=== PATIENT | male | born 1975 | race Two or more races ===

== ENCOUNTER 2019-09-27 00:55 | Emergency (ER) | payer OTHER ==
[~2019-09-27] VITALS: Ht 180.3 cm; Wt 95.3 kg
[2019-09-27 04:32] LABS: Basophils # (auto) 0 uL; Basophils % (auto) 0.5 % (0.0-2.0); Eosinophils # (auto) 0.3 uL; Hematocrit 49.1 % (41.0-53.0); Hemoglobin 16.6 g/dL (13.5-17.5); Lymphocytes % (auto) 35.3 % (10.0-50.0); Mean Corpuscular Hemoglobin 31.6 pg (28.0-32.0); Mean Corpuscular Hgb Conc. 33.8 g/dL (32.0-36.0); Mean Corpuscular Volume 93.5 fL (80.0-100.0); Monocytes # (auto) 0.8 uL; Monocytes % (auto) 9.2 % (0.0-12.0); Neutrophils # (auto) 4.4 uL; Nucleated Red Blood Cells % 0.1 %; Platelet Count (auto) 192 10^3/uL (140-450); Red Blood Cells 5.25 10^6/uL (4.5-5.90); Red Cell Distribution Width 12.9 % (11.8-14.3); White Blood Cell 8.5 10^3/uL (4.4-10.8)
[2019-09-27 04:53] LABS: Alanine Aminotransferase 41 U/L (16-61); Albumin 4.5 g/dL (3.4-5.0); Anion Gap 8 (5-15); Aspartate Aminotransferase 22 U/L (15-37); BUN/Creatinine Ratio 11.2; Blood Urea Nitrogen 12 mg/dL (7-18); Calcium 9.4 mg/dL (8.5-10.1); Carbon Dioxide 27 mmol/L (21-32); Chloride 103 mmol/L (98-107); GFR African American 97 mL/min; GFR Non-African American 80 mL/min; Glucose 101 mg/dL (74-106); Potassium 4.1 mmol/L (3.5-5.1); Sodium 138 mmol/L (136-145)
[2019-09-27 04:58] LABS: Alkaline Phosphatase 101 U/L (45-117); Total Protein 8.7 g/dL (6.4-8.2)
[2019-09-27] MEDS ORDERED: ASPirin 81 mg TAB PO ONE (07:30)
[2019-09-27] MEDS ORDERED: LORazepam 0.5 MG TAB PO ONE (07:30)
[2019-09-27 07:54] LABS: INR 0.98 (0.9-1.15); Partial Thromboplastin Time 30.2 sec (23.64-32.05)
[2019-09-27 10:04] VITALS: BP 118/86
== END 2019-09-27 10:31 ==
LOC: EDBD 00:55 → ER 00:58 → EEVIPCON 00:58 → ER 10:31
DX: R07.89 Other chest pain (principal); F41.9 Anxiety disorder, unspecified; E78.5 Hyperlipidemia, unspecified
CPT/HCPCS: 36415; 71045; 80053; 83735; 83880; 84484; 85025; 85610; 85730; 93005